=== PATIENT | male | born 1940 | race Caucasian/White ===

== ENCOUNTER 2021-08-03 08:26 | Emergency (ER) | payer OTHER ==
--- OUTSIDE RECORDS SUMMARY | 2021-08-03 08:30 | XMS REPORT | Continuity of Care Document ---
:1940 Author Organization [facility] t Address [address] [place] [address] [address] [place] [address] Care Team Providers Name Role Phone SAMMY RIVERA Attending Clinician Unavailable JOSE ANTONIO SINGH Attending Clinician Unavailable Problems This patient has no known problems. Allergies, Adverse Reactions, Alerts This patient has no known allergies or adverse reactions. Medications This patient has no known medications. Procedures This patient has no known procedures. Encounters Start End Encounter Admission Attending Care Care Encounter Source Date/Time Date/Time Type Type Clinicians Facility Department ID 2021-06-18 2021-06-18 Outpatient [facility] [id number] [place] 00:00:00 00:00:[address] 2020-11-18 2020-11-18 Outpatient MIGUEL [facility] [id number] [place] 00:00:00 00:00:00 SAMMY [address] 2020-10-28 2020-10-28 Outpatient [facility] [id number] [place] 00:00:00 00:00:[address] 2019-12-04 2019-12-04 [facility] [id number] [place] 00:00:00 00:00:00 JOSE ANTONIO [address] Results This patient has no known results.
[2021-08-03] MEDS ORDERED: ONDANSETRON 4 MG/2 ML VIAL ONE (09:25)
[2021-08-03] MEDS ORDERED: MORPHINE 4 MG/ML SYR ONE (09:25)
[2021-08-03] MEDS ORDERED: FAMOTIDINE 20 MG/2 ML VIAL IV ONE (09:26)
[2021-08-03] MEDS ORDERED: NA CHLORIDE 0.9% 1,000 ML ONE (09:26)
--- NOTE | 2021-08-03 09:33 | RAD REPORT ---
EXAM DESCRIPTION: US - Abdomen Exam Limited - 08/03/2021 9:23 am CLINICAL HISTORY: ABD PAIN COMPARISON: No comparisons FINDINGS: The gallbladder demonstrates shadowing gallstone No pericholecystic fluid or gallbladder w all thickening. The common bile duct is normal measuring 4 mm. The sonographic Barron's sign was nega tive. The liver demonstrates no findings of intrahepatic biliary dilatation. IMPRESSION: Cholelithiasis without sonographic evidence acute cholecystitis.
[2021-08-03 10:08] LABS: Absolute Lymphocytes (CBC) 1.1 K/uL (0.7-4.9); Basophils % 0.7 % (0-1.3); Hematocrit 34.4 % (39.6-49.0); Lymphocytes % 10.4 % (15.3-44.8); MPV 7.4 fL (7.6-11.3); RBC Red Blood Cell Count 4.88 M/uL (4.33-5.43)
[2021-08-03 10:10] LABS: Protime INR 1.36
[2021-08-03 10:28] LABS: ALT/SGPT 19 U/L (12-78); AST/SGOT 24 U/L (15-37); Alkaline Phosphatase 94 U/L (45-117); BUN Blood Urea Nitrogen 22 mg/dL (7-18); Bicarbonate 26 mmol/L (21-32); Bilirubin Direct 0.2 mg/dL (0-0.2); Bilirubin Total 0.5 mg/dL (0.2-1.0); Glucose Level 122 mg/dL (74-106); Lipase 278 U/L (73-393); NT PRO-BNP 37 pg/mL (<450); Potassium 3.8 mmol/L (3.5-5.1); Protein, Total 8.1 g/dL (6.4-8.2); Sodium Level 130 mmol/L (136-145); Troponin (Emerg Dept Use Only) < 0.02 ng/mL (0.0-0.045)
[2021-08-03 10:36] LABS: Anisocytosis 1+; Blood Morphology Comment NOTED (NOT SEEN); Elliptocytes 1+; Hypochromasia 1+; Platelet Estimate ADEQ; Poikilocytosis SLIGHT; White Blood Cell Scan OK (OK)
--- NOTE | 2021-08-03 10:52 | RAD REPORT ---
EXAM DESCRIPTION: RAD - Chest Single View - 08/03/2021 9:38 am CLINICAL HISTORY: ABDOMINAL DISTENTION COMPARISON: No comparisons FINDINGS: Lines: None. Lungs: No evidence of edema or pneumonia. Pleural: No significant pleural effusions or pneumothorax. Cardiac: The heart size is within normal limits. Bones: No acute fractures. Spinal stimulator. Other: IMPRESSION: No acute cardiopulmonary disease.
--- NOTE | 2021-08-03 11:05 | RAD REPORT ---
EXAM DESCRIPTION: CTAbdomen Pelvis W Contrast - 08/03/2021 10:52 am CLINICAL HISTORY: ABD PAIN COMPARISON: No comparisons TECHNIQUE: CT of the abdomen and pelvis was performed. All CT scans are performed using dose optimization technique as appropriate and may include automated exposure control or mA/KV adjustment according to patient size. FINDINGS: Lower chest: Multi-vessel coronary artery disease. Liver: No acute abnormality or suspicious lesions. Biliary: Cholelithiasis. Stomach: No significant focal abnormality. Duodenum: No significant focal abnormality. Pancreas: No significant abnormality. Spleen: Mild peripancreatic stranding. Adrenal: No suspicious lesions. Kidney/ureter: No hydronephrosis. Punctate nonobstructing stone left kidney. Too small to characteriz e and/or benign appearing renal lesions are noted. Retroperitoneum: Retroperitoneal lymphadenopathy. For example, there is an enlarged left periaortic l ymph node measuring 15 millimeters. Vascular: No aneurysm. Mild atherosclerosis . Bowel: No significant focal abnormality. The appendix is normal. Diverticulosis without diverticuliti s. Peritoneum: Ascites is present. Enlarged portal caval and upper abdominal lymph nodes. Mesenteric lym phadenopathy is noted small fat containing inguinal hernias. Bladder: Grossly unremarkable. Reproductive: No adnexal masses. Bones: No acute fracture. Spinal stimulator. Multilevel degenerative changes are present in the spine . Other: n/a IMPRESSION: Diffuse mild peripancreatic fluid/ edema. Correlate with lipase to exclude acute pancrea titis. Retroperitoneal, mesenteric, and upper abdominal lymphadenopathy. The etiology is unclear. This could represent a lymphoproliferative disorder or metastatic disease. It is more than expected for a react jamel process. The retroperitoneal lymph nodes to be amenable to a CT-guided biopsy if clinically indic ated. Cholelithiasis. Small ascites.
--- NOTE | 2021-08-03 11:26 | EDPHYS ---
Physician Documentation [facility] Name: Valentino Ramirez Jr Age: 80 yrs Sex: Male : 1940 Arrival Date: 08/03/2021 Time: 08:30 Bed 19 Private MD: Sudhir Medel T ED Physician Duane Verma HPI: 08/03 08:57 This 80 yrs old Male presents to ER via Wheelchair with complaints of arlette Weakness, Back Pain, anemia. 08:57 The patient presents to the emergency department with weakness of the. arlette Historical: - Allergies: 08:54 Sulindac; (clinoril) anti-inflammatory; iw - Home Meds: 08:58 ferrous gluconate 324 mg (37.5 mg iron) Oral tab daily [Active]; diazepam 10 mg Oral iw tab nightly [Active]; tamsulosin 0.4 mg oral cap 1 cap once daily [Active]; lisinopril-hydrochlorothiazide 20-12.5 mg oral tab 1 tab once daily [Active]; rosuvastatin 5 mg oral tab 1 tab once daily [Active]; carvedilol 3.125 mg oral tab 1 tab 2 times per day [Active]; allopurinol 300 mg Oral tab 1 tab once daily [Active]; aspirin 81 mg Oral TbEC 1 tab once daily [Active]; Aleve 220 mg Oral tab 1 tab as needed [Active]; - PMHx: 08:55 sciatic nerve pain; Hypertensive disorder; Hypercholesterolemia; iw - PSHx: 08:58 hernia; Vasectomy; knee; iw - Immunization history:: Client reports receiving the 2nd dose of the Covid vaccine. - Social history:: Smoking status: Patient denies any tobacco usage or history of. ROS: 08:59 Constitutional: Negative for fever, chills, and weight loss, Eyes: Negative for injury, arlette pain, redness, and discharge, ENT: Negative for injury, pain, and discharge, Neck: Negative for injury, pain, and swelling, Cardiovascular: Negative for chest pain, palpitations, and edema, Respiratory: Negative for shortness of breath, cough, wheezing, and pleuritic chest pain, Back: Negative for injury and pain, : Negative for injury, bleeding, discharge, and swelling, MS/Extremity: Negative for injury and deformity, Skin: Negative for injury, rash, and discoloration, Neuro: Negative for headache, weakness, numbness, tingling, and seizure. 08:59 Abdomen/GI: Positive for abdominal pain, of the right upper quadrant, left upper quadrant, right lower quadrant and left lower quadrant. Exam: 08:59 Constitutional: This is a well developed, well nourished patient who is awake, alert, arlette and in no acute distress. Head/Face: Normocephalic, atraumatic. Eyes: Pupils equal round and reactive to light, extra-ocular motions intact. Lids and lashes normal. Conjunctiva and sclera are non-icteric and not injected. Cornea within normal limits. Periorbital areas with no swelling, redness, or edema. ENT: Nares patent. No nasal discharge, no septal abnormalities noted. Tympanic membranes are normal and external auditory canals are clear. Oropharynx with no redness, swelling, or masses, exudates, or evidence of obstruction, uvula midline. Mucous membranes moist. Neck: Trachea midline, no thyromegaly or masses palpated, and no cervical lymphadenopathy. Supple, full range of motion without nuchal rigidity, or vertebral point tenderness. No Meningismus. Chest/axilla: Normal chest wall appearance and motion. Nontender with no deformity. No lesions are appreciated. Cardiovascular: Regular rate and rhythm with a normal S1 and S2. No gallops, murmurs, or rubs. Normal PMI, no JVD. No pulse deficits. Respiratory: Lungs have equal breath sounds bilaterally, clear to auscultation and percussion. No rales, rhonchi or wheezes noted. No increased work of breathing, no retractions or nasal flaring. Back: No spinal tenderness. No costovertebral tenderness. Full range of motion. Male : Normal genitalia with no discharge or lesions. Skin: Warm, dry with normal turgor. Normal color with no rashes, no lesions, and no evidence of cellulitis. MS/ Extremity: Pulses equal, no cyanosis. Neurovascular intact. Full, normal range of motion. Neuro: Awake and alert, GCS 15, oriented to person, place, time, and situation. Cranial nerves II-XII grossly intact. Motor strength 5/5 in all extremities. Sensory grossly intact. Cerebellar exam normal. Normal gait. Psych: Awake, alert, with orientation to person, place and time. Behavior, mood, and affect are within normal limits. 08:59 Abdomen/GI: Inspection: distension, Bowel sounds: normal, Palpation: moderate abdominal tenderness, in the right upper quadrant, left upper quadrant, right lower quadrant and left lower quadrant, Liver: no appreciated palpable abnormalities, Hernia: not appreciated. 08:59 Musculoskeletal/extremity: DVT Exam: No signs of deep vein thrombosis. no pain, no swelling, no tenderness, negative Homans' sign noted on exam, no appreciated bluish discoloration, no erythema, no increased warmth. 10:21 Abdomen/GI: Rectal exam: is unremarkable, rectal tone normal, Stool: normal, guaiac arlette negative, hemorrhoid(s), are not appreciated, mass, is not appreciated, swelling, is not appreciated, tenderness, is not appreciated. 12:21 ECG was reviewed by the Attending Physician. arlette 12:39 ECG was reviewed by the Attending Physician. arlette Vital Signs: 08:49 BP 116 / 69; Pulse 99; Resp 16; Temp 97.3; Pulse Ox 99% on R/A; Weight 78.93 kg; Height iw 5 ft. 10 in. (177.80 cm); 10:30 BP 104 / 57; Pulse 84; Resp 16; Pulse Ox 97% ; Weight 2.27 kg; bp 11:30 BP 101 / 55; Pulse 86; Resp 17; Pulse Ox 97% ; bp 13:25 BP 101 / 69; Pulse 67; Resp 16; Pulse Ox 97% ; bp 10:30 Body Mass Index 0.72 (2.27 kg, 177.80 cm) bp MDM: 08:38 Patient medically screened. arlette 09:02 Differential diagnosis: AAA, appendicitis, bowel obstruction, cholecystitis, arlette Cholelithiasis, diverticulitis, gastritis, GI Bleed, Irritable bowel syndrome, non-specific abd pain, pancreatitis, Peptic Ulcer Disease. Data reviewed: vital signs, nurses notes, lab test result(s), EKG, radiologic studies, CT scan, ultrasound. Data interpreted: environmental monitoring specialist: rate is 99 beats/min, rhythm is regular, Pulse oximetry: on room air. Test interpretation: by ED physician or midlevel provider: ECG, plain radiologic studies. Counseling: I had a detailed discussion with the patient and/or guardian regarding: the historical points, exam findings, and any diagnostic results supporting the discharge/admit diagnosis, lab results, radiology results. 08/03 08:53 Order name: Occult Blood--Ancillary; Complete Time: 10:21 08/03 08:57 Order name: Basic Metabolic Panel; Complete Time: 10:39 [facility] 08/03 08:57 Order name: CBC with Diff; Complete Time: 10:39 [facility] 08/03 08:57 Order name: LFT's; Complete Time: 10:39 [facility] 08/03 08:57 Order name: Magnesium; Complete Time: 10:39 [facility] 08/03 08:57 Order name: NT PRO-BNP; Complete Time: 10:39 [facility] 08/03 08:57 Order name: PT-INR; Complete Time: 10:21 [facility] 08/03 08:57 Order name: Troponin (emerg Dept Use Only); Complete Time: 10:39 [facility] 08/03 08:57 Order name: Lipase; Complete Time: 10:39 [facility] 08/03 08:57 Order name: Type And Screen; Complete Time: 11:05 [facility] 08/03 08:57 Order name: SARS-COV-2 RT PCR (Document "Date of Onset" if Symptomatic); Complete Time: [facility] 10:08/03 09:03 Order name: Lactate [facility] 08/03 09:03 Order name: Lactate; Complete Time: 10:39 [facility] 08/03 10:19 Order name: Antibody Screen; Complete Time: 11:05 [facility] 08/03 08:57 Order name: XRAY Chest (1 view); Complete Time: 11:05 [facility] 08/03 08:57 Order name: CT Abd/Pelvis - PO and IV Contrast; Complete Time: 11:21 [facility] 08/03 08:57 Order name: US Abdomen Limited; Complete Time: 09:40 [facility] 08/03 10:36 Order name: CBC Smear Scan; Complete Time: 10:39 [facility] 08/03 10:41 Order name: Ferritin; Complete Time: 12:32 [facility] 08/03 10:41 Order name: B12; Complete Time: 12:32 [facility] 08/03 10:41 Order name: Retic Count; Complete Time: 11:39 [facility] 08/03 10:41 Order name: Folic Acid,Serum (folate); Complete Time: 12:32 [facility] 08/03 10:41 Order name: TIBC; Complete Time: 12:32 [facility] 08/03 11:46 Order name: Urine Dipstick-Ancillary; Complete Time: 12:32 [facility] 08/03 08:57 Order name: EKG; Complete Time: 08:58 [facility] 08/03 08:57 Order name: Cardiac monitoring; Complete Time: 10:17 [facility] 08/03 08:57 Order name: IV Saline Lock; Complete Time: 10:17 [facility] 08/03 08:57 Order name: Labs collected and sent; Complete Time: 10:17 [facility] 08/03 08:57 Order name: O2 Per Protocol; Complete Time: 10:16 [facility] 08/03 08:57 Order name: O2 Sat Monitoring; Complete Time: 10:16 [facility] 08/03 08:57 Order name: Urine Dipstick-Ancillary (obtain specimen); Complete Time: 11:48 [facility] EC:21 Rate is 89 beats/min. Rhythm is regular. QRS Palmer is Normal. HI interval is normal. QRS arlette interval is normal. QT interval is normal. No Q waves. T waves are Normal. No ST changes noted. Clinical impression: NSR w/ Non-specific ST/T Changes and No evidence of ischemia. Interpreted by me. Reviewed by me. 12:39 Rate is 105 beats/min. Rhythm is regular. QRS Palmer is Normal. HI interval is normal. arlette QRS interval is normal. QT interval is normal. No Q waves. T waves are Normal in leads II, III, aVF. Clinical impression: NSR w/ Non-specific ST/T Changes and Sinus tachycardia. Interpreted by me. Reviewed by me. Administered Medications: 09:40 Drug: NS 0.9% 500 ml Route: IV; Rate: bolus; Site: right forearm; bp 12:54 Follow up: IV Status: Completed infusion; IV Intake: 500ml bp 09:40 Drug: NS 0.9% 1000 ml Route: IV; Rate: 125 ml/hr; Site: right forearm; bp 12:54 Follow up: IV Status: Completed infusion; IV Intake: 500ml bp 09:40 Drug: Pepcid (famotidine) 20 mg Route: IVP; Site: right forearm; bp 10:44 Follow up: Response: No adverse reaction bp 09:40 Drug: morphine 2 mg Route: IVP; Site: right forearm; bp 09:40 Drug: Zofran (Ondansetron) 4 mg Route: IVP; Site: right forearm; bp 10:46 Follow up: Response: Nausea is decreased bp 09:45 Drug: morphine 2 mg Route: IVP; Site: right forearm; bp 10:46 Follow up: Response: Pain is decreased bp 11:45 Drug: Zosyn (piperacillin-tazobactam) 3.375 grams Route: IVPB; Infused Over: 60 mins; bp Site: right forearm; 12:53 Follow up: IV Status: Completed infusion; IV Intake: 100ml bp 13:12 Drug: morphine 2 mg Route: IVP; Site: right wrist; iw 13:28 Follow up: Response: Pain is decreased bp Disposition Summary: 08/03/21 11:24 Transfer Ordered Transfer Location: [facility] arlette Reason: Higher level of care arlette Condition: Fair arlette Problem: new arlette Symptoms: have improved arlette Accepting Physician: to [facility](08/03/21 13:30) bp Diagnosis - Abdominal pain, Generalized arlette - Other chronic pancreatitis arlette - Anemia, unspecified arlette - Hypo-osmolality and hyponatremia arlette - Other cholelithiasis without obstruction arlette Forms: - Medication Reconciliation Form arlette - SBAR form arlette Signatures: Dispatcher [employer] EDMS Duane Verma MD MD cha Williams, Irene, RN RN iw Gregory Cortez RN RN bp Corrections: (The following items were deleted from the chart) 10:42 10:41 FERRITIN+C.LAB.BRZ ordered. [facility] 11:31 11:22 Blood Transfusion Consent ordered. arlette arlette 11:32 11:24 to [facility] arlette arlette 13:30 11:32 to [facility] arlette bp
--- NOTE | 2021-08-03 11:26 | ER ---
Nurse's Notes [facility] Name: Valentino Ramirez Jr Age: 80 yrs Sex: Male : 1940 Arrival Date: 08/03/2021 Time: 08:30 Bed 19 Private MD: Sudhir Medel T Diagnosis: Abdominal pain, Generalized;Other chronic pancreatitis;Anemia, unspecified;Hypo-osmolality and hyponatremia;Other cholelithiasis without obstruction Presentation: 08/03 08:49 Chief complaint: Patient's son or daughter states: pt has been sleeping all the time, iw not eating well, increased weakness over last 10 days, also lost about 20 pounds in past 5 weeks , hx of anemia. Coronavirus screen: At this time, the client does not indicate any symptoms associated with coronavirus-19. Ebola Screen: Patient negative for fever greater than or equal to 101.5 degrees Fahrenheit, and additional compatible Ebola Virus Disease symptoms Patient denies exposure to infectious person. Patient denies travel to an Ebola-affected area in the 21 days before illness onset. No symptoms or risks identified at this time. Initial Sepsis Screen: Does the patient meet any 2 criteria? No. Patient's initial sepsis screen is negative. Does the patient have a suspected source of infection? No. Patient's initial sepsis screen is negative. Risk Assessment: Do you want to hurt yourself or someone else? Patient reports no desire to harm self or others. Onset of symptoms was July 24, 2021. 08:49 Method Of Arrival: Wheelchair iw 08:49 Acuity: MARIAELENA 3 iw Triage Assessment: 09:00 General: Appears in no apparent distress. comfortable, unkempt, Behavior is bp uncooperative. Pain: Denies pain. EENT: No deficits noted. Neuro: Level of Consciousness is awake, alert, obeys commands, Oriented to Appropriate for age. Cardiovascular: Rhythm is sinus tachycardia. Respiratory: Breath sounds with crackles bilaterally. GI: No signs and/or symptoms were reported involving the gastrointestinal system. : No signs and/or symptoms were reported regarding the genitourinary system. Derm: No deficits noted. Musculoskeletal: No deficits noted. Historical: - Allergies: 08:54 Sulindac; (clinoril) anti-inflammatory; iw - Home Meds: 08:58 ferrous gluconate 324 mg (37.5 mg iron) Oral tab daily [Active]; diazepam 10 mg Oral iw tab nightly [Active]; tamsulosin 0.4 mg oral cap 1 cap once daily [Active]; lisinopril-hydrochlorothiazide 20-12.5 mg oral tab 1 tab once daily [Active]; rosuvastatin 5 mg oral tab 1 tab once daily [Active]; carvedilol 3.125 mg oral tab 1 tab 2 times per day [Active]; allopurinol 300 mg Oral tab 1 tab once daily [Active]; aspirin 81 mg Oral TbEC 1 tab once daily [Active]; Aleve 220 mg Oral tab 1 tab as needed [Active]; - PMHx: 08:55 sciatic nerve pain; Hypertensive disorder; Hypercholesterolemia; iw - PSHx: 08:58 hernia; Vasectomy; knee; iw - Immunization history:: Client reports receiving the 2nd dose of the Covid vaccine. - Social history:: Smoking status: Patient denies any tobacco usage or history of. Screenin:40 Abuse screen: Denies threats or abuse. Denies injuries from another. Nutritional bp screening: No deficits noted. Tuberculosis screening: No symptoms or risk factors identified. Fall Risk None identified. Assessment: 09:00 General: SEE TRIAGE NOTE. bp 09:30 Reassessment: No changes from previously documented assessment. Patient and/or family bp updated on plan of care and expected duration. Pain level reassessed. PO CONTRAST COMPLETE, CT NOTIFIED. 10:38 Reassessment: No changes from previously documented assessment. PT TO CT. bp 13:25 Reassessment: EMS AT B/S FOR TRANSPORT. bp Vital Signs: 08:49 BP 116 / 69; Pulse 99; Resp 16; Temp 97.3; Pulse Ox 99% on R/A; Weight 78.93 kg; Height iw 5 ft. 10 in. (177.80 cm); 10:30 BP 104 / 57; Pulse 84; Resp 16; Pulse Ox 97% ; Weight 2.27 kg; bp 11:30 BP 101 / 55; Pulse 86; Resp 17; Pulse Ox 97% ; bp 13:25 BP 101 / 69; Pulse 67; Resp 16; Pulse Ox 97% ; bp 10:30 Body Mass Index 0.72 (2.27 kg, 177.80 cm) bp ED Course: 08:30 Patient arrived in ED. as 08:30 Sudhir Medel MD is Private Physician. as 08:32 Duane Verma MD is Attending Physician. arlette 08:54 Triage completed. iw 08:54 Gregory Cortez, NEELA is Primary Nurse. bp 09:01 Arm band placed on. iw 09:23 US Abdomen Limited In Process Unspecified. EDMS 09:30 Inserted saline lock: 18 gauge in right forearm, using aseptic technique. Blood bp collected. 09:38 XRAY Chest (1 view) In Process Unspecified. EDMS 09:40 Patient has correct armband on for positive identification. Bed in low position. Call bp light in reach. Side rails up X2. Adult w/ patient. 10:15 Lactate Sent. bp 10:51 CT Abd/Pelvis - PO and IV Contrast In Process Unspecified. EDMS 11:25 initiated a transfer Farshad Briseno Rn from the [facility] Transfer [facility]. eb 11:[address] Moore the hospitalist provider relations coordinator for [facility] with Dr. Bayron pierson for patient transfer consultation. 12:06 administrative approval given by Farshad Briseno Rn/ patient has been accepted to [facility] 4th floor A409/ Dr. Laureano Franklin has accepted the patient in transfer/ report to be called to [phone]. 13:25 No provider procedures requiring assistance completed. Patient transferred, IV remains bp in place. intact, bleeding controlled, No redness/swelling at site. Pressure dressing applied. Administered Medications: 09:40 Drug: NS 0.9% 500 ml Route: IV; Rate: bolus; Site: right forearm; bp 12:54 Follow up: IV Status: Completed infusion; IV Intake: 500ml bp 09:40 Drug: NS 0.9% 1000 ml Route: IV; Rate: 125 ml/hr; Site: right forearm; bp 12:54 Follow up: IV Status: Completed infusion; IV Intake: 500ml bp 09:40 Drug: Pepcid (famotidine) 20 mg Route: IVP; Site: right forearm; bp 10:44 Follow up: Response: No adverse reaction bp 09:40 Drug: morphine 2 mg Route: IVP; Site: right forearm; bp 09:40 Drug: Zofran (Ondansetron) 4 mg Route: IVP; Site: right forearm; bp 10:46 Follow up: Response: Nausea is decreased bp 09:45 Drug: morphine 2 mg Route: IVP; Site: right forearm; bp 10:46 Follow up: Response: Pain is decreased bp 11:45 Drug: Zosyn (piperacillin-tazobactam) 3.375 grams Route: IVPB; Infused Over: 60 mins; bp Site: right forearm; 12:53 Follow up: IV Status: Completed infusion; IV Intake: 100ml bp 13:12 Drug: morphine 2 mg Route: IVP; Site: right wrist; iw 13:28 Follow up: Response: Pain is decreased bp Intake: 12:53 IV: 100ml; Total: 100ml. bp 12:54 IV: 500ml; Total: 600ml. bp 12:54 IV: 500ml; Total: 1100ml. bp Outcome: 11:24 ER care complete, transfer ordered by MD. chong 13:25 Transferred by ground EMS to [facility]. bp 13:25 Admitted to 13:25 Condition: stable 13:25 Instructed on the need for transfer. 13:30 Patient left the ED. bp Signatures: Dispatcher [employer] Duane Couch MD MD cha Martinez, Amelia as Williams, Irene, RN RN Gregory Nowak RN RN Jessica Callejas
[2021-08-03 11:30] LABS: RBC Red Blood Cell Count 4.89 M/uL (4.33-5.43)
[2021-08-03] MEDS ORDERED: PIPERACIL/TAZO 3.375 GM VIAL IV ONE (11:36)
[2021-08-03] MEDS ORDERED: NA CHLORIDE 0.9% 100 ML ONE (11:36)
[2021-08-03 11:46] LABS: Urine Blood Negative (Negative); Urine Glucose Negative (Negative); Urine Protein Negative (Negative); Urine Specific Gravity 1.015 (1.005-1.030)
[2021-08-03 12:00] LABS: Ferritin 75.6 ng/mL (26-388)
[2021-08-03] MEDS ORDERED: MORPHINE 2 MG/ML SYR ONE (13:09)
[2021-08-03 13:45] VITALS: TEMP 97.3
[2021-08-03 13:47] VITALS: O2SAT 97
[2021-08-03 13:50] VITALS: BP 101/69
== END 2021-08-03 13:30 | disposition short-term general hospital (02) ==
LOC: ER 08:26
DX: K86.1 Other chronic pancreatitis (principal); K80.80 Other cholelithiasis without obstruction; D64.9 Anemia, unspecified; E87.1 Hypo-osmolality and hyponatremia; I10 Essential (primary) hypertension; E78.00 Pure hypercholesterolemia, unspecified; Z79.82 Long term (current) use of aspirin; Z88.8 Allergy status to other drugs, medicaments and biological substances; Z20.822 Contact with and (suspected) exposure to COVID-19
CPT/HCPCS: 93005; 85025; 80048; 36415; 86900; 83735; 86850; 85610; 85044; 86901; 80076; 83605; 82272; 81003; 84484; 82728; 82746; 82607; 83690; 83540; 83880; 84466; 74177; 71045; 76705; 99285; U0003; Q9967; J2543; J2270; J7030; J2405